=== PATIENT | female | born 1975 | race American Indian/Alaskan Native ===

== ENCOUNTER 2019-01-06 16:07 | Inpatient (IN) | payer BC, MEDICAID ==
[2019-01-06] MEDS ORDERED: ASPIRIN PO ONE (16:26)
[2019-01-06 16:50] LABS: Basophils # (Auto) 0.1 K/mm3 (0.0-0.1); Basophils % (Auto) 0.6 % (0.0-1.8); Eosinophils % (Auto) 0.1 % (0.0-4.3); Hematocrit 37.5 % (30.3-42.9); Hemoglobin 13.4 gm/dl (10.1-14.3); Lymphocytes # (Auto) 0.9 K/mm3 (1.2-5.4); Lymphocytes % (Auto) 8.2 % (13.4-35.0); Mean Corpuscular HGB Conc 36 % (30-34); Mean Corpuscular Volume 88 fl (79-97); Monocytes # (Auto) 0.3 K/mm3 (0.0-0.8); Monocytes % (Auto) 3.1 % (0.0-7.3); Platelet Count 355 K/mm3 (140-440); Red Blood Count 4.29 M/mm3 (3.65-5.03); Red Cell Distribution Width 13.3 % (13.2-15.2)
--- NOTE | 2019-01-06 16:57 | XRay Report ---
CHEST 1 VIEW 01/06/2019 4:43 PM INDICATION / CLINICAL INFORMATION: Chest Pain. COMPARISON: None available. FINDINGS: SUPPORT DEVICES: None. HEART / MEDIASTINUM: No significant abnormality. LUNGS / PLEURA: No significant pulmonary or pleural abnormality. No pneumothorax. ADDITIONAL FINDINGS: No significant additional findings. IMPRESSION: 1. No acute findings. Signer Name: Godfrey Bermudez MD Signed: 01/06/2019 4:52 PM Workstation Name: [id number]
[2019-01-06 17:14] LABS: BUN/Creatinine Ratio 17; Blood Urea Nitrogen 15 mg/dL (7-17); Calcium 9.4 mg/dL (8.4-10.2); Hemolysis Index 9
[2019-01-06] MEDS ORDERED: ZOFRAN IV ONE ×2 (17:50→19:05)
[2019-01-06] MEDS ORDERED: BENTYL IM ONE (17:50)
[2019-01-06] MEDS ORDERED: NACL 0.9% 1000 ML 1,000 ML IV ONE ×2 (17:50→21:30)
[2019-01-06] MEDS ORDERED: LIDOCAINE VISCOUS 2% PO ONE (17:52)
[2019-01-06] MEDS ORDERED: ALUM-MAG HYDROX-SIMETH 200-200-20MG/5ML PO ONE (17:52)
[2019-01-06 18:50] LABS: Alanine Aminotransferase 11 units/L (7-56); Albumin 4.3 g/dL (3.9-5); BUN/Creatinine Ratio 17; Blood Urea Nitrogen 15 mg/dL (7-17); Calcium 9.5 mg/dL (8.4-10.2); Hemolysis Index 10
[2019-01-06 19:02] LABS: Bilirubin,Urine NEG (Negative); Blood,Urine LG (Negative); Color,Urine Yellow (Yellow); Mucus,Urine FEW /HPF; Urobilinogen,Urine < 2.0 mg/dL (<2.0)
[2019-01-06 19:04] LABS: RBC,Urine > 182.0 /HPF (0.0-6.0)
--- NOTE | 2019-01-06 19:15 | Emergency Department Report ---
ED Abdominal Pain HPI - General Chief Complaint: Abdominal Pain Stated Complaint: CHEST PAIN Time Seen by Provider: 01/06/19 17:29 Source: patient Mode of arrival: Ambulatory Limitations: No Limitations - History of Present Illness Initial Comments: Patient is a 43-year-old female who presents the emergency room with complaint of epigastric abdominal pain that began at 5 AM this morning. she has associated nausea and vomiting. She has had approximately 6 episodes of emesis. She states she has had constipation for approximately a week. Denies ever having this before. the patient states also due to the pain she has been "hyperventilating" which was causing tingling in her bilateral fingertips. She is currently on her menstrual cycle. The patient states her only abdominal surgeries are 2 C-sections. Denies any past medical history or allergies to medications. - Related Data Allergies Allergy/AdvReac Type Severity Reaction Status Date / Time No Known Allergies Allergy Unverified 01/06/19 16:09 ED Review of Systems ROS: Stated complaint: CHEST PAIN Other details as noted in HPI Comment: All other systems reviewed and negative ED Past Medical Hx - Past Medical History Previous Medical History?: No - Surgical History Past Surgical History?: No - Social History Smoking Status: Never Smoker Substance Use Type: Alcohol ED Physical Exam - General Limitations: No Limitations General appearance: alert, anxious - Head Head exam: Present: atraumatic, normocephalic - Eye Eye exam: Present: normal appearance, PERRL - ENT ENT exam: Present: mucous membranes moist - Respiratory Respiratory exam: Present: normal lung sounds bilaterally. Absent: respiratory distress, wheezes, rales, rhonchi, stridor, chest wall tenderness, accessory muscle use, decreased breath sounds, prolonged expiratory - Cardiovascular Cardiovascular Exam: Present: regular rate, normal rhythm, normal heart sounds. Absent: systolic murmur, diastolic murmur, rubs, gallop - GI/Abdominal GI/Abdominal exam: Present: soft, tenderness (epigastric, RUQ), normal bowel sounds. Absent: distended, guarding, rebound, rigid - Back Exam Back exam: Absent: CVA tenderness (R), CVA tenderness (L) - Neurological Exam Neurological exam: Present: alert, oriented X3 - Psychiatric Psychiatric exam: Present: normal affect, normal mood - Skin Skin exam: Present: warm, dry, intact ED Course Vital Signs 0701/06/19 01/07/19 16:22 20:13 00:00 Temperature 98.6 F 98 F Pulse Rate 79 86 84 Respiratory 16 18 20 Rate Blood Pressure 139/78 128/78 118/76 [Right] O2 Sat by Pulse 96 100 100 Oximetry 01/07/19 00:13 Temperature Pulse Rate Respiratory 18 Rate Blood Pressure [Right] O2 Sat by Pulse 100 Oximetry - Consultations Consultation #1: 01/07/19 01:[address] Bentley, general surgery regarding pt and results advised to give zosyn, IVF, make NPO, admit to hospitalist, and will see pt in the AM. Consultation #2: 01/07/19 1:[address] Newton, hospitalist regarding pt and results will accept and resume care of pt and admit to the hospital ED Medical Decision Making - Lab Data Result diagrams: 01/06/19 16:28 01/06/19 17:59 - EKG Data EKG shows normal: sinus rhythm, axis, intervals, QRS complexes, ST-T waves Rate: normal - Radiology Data Radiology results: report reviewed ULTRASOUND ABDOMEN, LIMITED (RIGHT UPPER QUADRANT) INDICATION: Cholelithiasis with possible cholecystitis. COMPARISON: CT of the abdomen and pelvis with contrast from earlier today. FINDINGS: Pancreas: No significant abnormality along the visualized portions. The pancreatic tail is obscured. Liver: No significant abnormality. Gallbladder: Numerous gallstones are seen with asymmetric wall thickening measuring up to 17 mm. No pericholecystic fluid is seen. Sonographic Nuñez's sign: Not performed. Bile ducts: No significant abnormality. Common Bile Duct measures 3 mm. Free fluid: None. Additional Findings: None. IMPRESSION: Cholelithiasis with suspected cholecystitis. Please correlate with the clinical findings. Signer Name: Wilver Granados MD Signed: 01/07/2019 12:49 AM Workstation Name: [id number] Transcribed By: SOPHIA Dictated By: Wilver Granados MD Electronically Authenticated By: Wilver Granados MD Signed Date/Time: 01/07/[address] angiography of the chest with 2-D reconstructions INDICATION: Chest pain and elevated d-dimer The patient received 100 mL of Omnipaque 350 for intravenous contrast Thin section axial images were obtained as well as 2-D reformatted MIP images in all 3 planes FINDINGS: There is no hilar or mediastinal adenopathy. No pleural or pericardial effusion. Lung windows show no nodules, masses or infiltrates. There is no thoracic aortic aneurysm or dissection present. Routine axial images as well as 2-D reconstructions through the pulmonary arteries show no evidence of emboli. IMPRESSION: Negative chest CTA CT of the abdomen and pelvis with contrast INDICATION: Chest and abdominal pain FINDINGS: The liver, spleen, pancreas, adrenal glands and kidneys all appear normal. There are gallstones present with gallbladder wall thickening without definite surrounding inflammation. No biliary tree dilation. No fluid or adenopathy in the abdomen. CT of the pelvis shows an umbilical hernia containing fat. Appendix is seen and is normal. No uterine or adnexal masses. No pelvic fluid or adenopathy. No diverticulosis or diverticulitis. No bowel obstruction is seen. No significant skeletal lesion. IMPRESSION: Possible early cholecystitis. Correlation with physical exam and/or gallbladder ultrasound may be of benefit. Automated exposure control was utilized to diminish radiation dose. Signer Name: Arnol Henley MD Signed: 01/06/2019 9:35 PM Workstation Name: [id number] Transcribed By: DAVID Dictated By: Arnol Henley MD Electronically Authenticated By: Arnol Henley MD Signed Date/Time: 01/06/195 CHEST 1 VIEW 01/06/2019 4:43 PM INDICATION / CLINICAL INFORMATION: Chest Pain. COMPARISON: None available. FINDINGS: SUPPORT DEVICES: None. HEART / MEDIASTINUM: No significant abnormality. LUNGS / PLEURA: No significant pulmonary or pleural abnormality. No pneumothorax. ADDITIONAL FINDINGS: No significant additional findings. IMPRESSION: 1. No acute findings. Signer Name: Godfrey Bermudez MD Signed: 01/06/2019 4:52 PM Workstation Name: [id number] Transcribed By: FRANNIE Dictated By: Godfrey Bermudez MD Electronically Authenticated By: Godfrey Bermudez MD Signed Date/Time: 01/06/19 6602 - Medical Decision Making Patient is a 43-year-old female who presents the emergency room with complaint of epigastric abdominal pain that began at 5 AM this morning. she has associated nausea and vomiting. She has had approximately 6 episodes of emesis. She states she has had constipation for approximately a week. Denies ever having this before. the patient states also due to the pain she has been "hyperventilating" which was causing tingling in her bilateral fingertips. She is currently on her menstrual cycle. The patient states her only abdominal surgeries are 2 C-sections. Denies any past medical history or allergies to medications. VSS. on exam: TTP of the epigastric and RUQ. CT abd pelvis shows evidence of cholelithiasis and recommends US, US of the RUQ shows cholelithiasis with evidence of cholecystitis. labs WNL. trop negative x2. D-dimer elevated, CTA of the chest with no acute process, no PE. CXR with no acute process. spoke with Dr. Bentley, general surgery will see pt in the AM. spoke with Dr. Newton, hospitalist who admitted and accepted care of pt. pt admitted to the hospital for further management. - Differential Diagnosis PUD, GERD, gastritis, cholelithiasis, cholecystitis, SBO Critical care attestation.: If time is entered above; I have spent that time in minutes in the direct care of this critically ill patient, excluding procedure time. ED Disposition Clinical Impression: Cholecystitis Abdominal pain Qualifiers: Abdominal location: epigastric Qualified Code(s): R10.13 - Epigastric pain Cholelithiasis Qualifiers: Cholelithiasis location: gallbladder Cholecystitis presence: with cholecystitis Cholecystitis acuity: acute Biliary obstruction: without biliary obstruction Qualified Code(s): K80.00 - Calculus of gallbladder with acute cholecystitis without obstruction Disposition: OP ADMIT IP TO THIS HOSP Is pt being admited?: Yes Does the pt Need Aspirin: No Condition: Fair Time of Disposition: 02:08
[2019-01-06] MEDS ORDERED: MORPHINE IV ONE ×2 (21:09→21:58)
[2019-01-06] MEDS ORDERED: NACL 0.9% 1000 ML 1,000 ML ONE (21:27)
--- NOTE | 2019-01-06 21:39 | Cat Scan Report ---
CT angiography of the chest with 2-D reconstructions INDICATION: Chest pain and elevated d-dimer The patient received 100 mL of Omnipaque 350 for intravenous contrast Thin section axial images were obtained as well as 2-D reformatted MIP images in all 3 planes FINDINGS: There is no hilar or mediastinal adenopathy. No pleural or pericardial effusion. Lung windo ws show no nodules, masses or infiltrates. There is no thoracic aortic aneurysm or dissection present . Routine axial images as well as 2-D reconstructions through the pulmonary arteries show no evidence of emboli. IMPRESSION: Negative chest CTA CT of the abdomen and pelvis with contrast INDICATION: Chest and abdominal pain FINDINGS: The liver, spleen, pancreas, adrenal glands and kidneys all appear normal. There are gallst ones present with gallbladder wall thickening without definite surrounding inflammation. No biliary t ree dilation. No fluid or adenopathy in the abdomen. CT of the pelvis shows an umbilical hernia containing fat. Appendix is seen and is normal. No uterine or adnexal masses. No pelvic fluid or adenopathy. No diverticulosis or diverticulitis. No bowel obst ruction is seen. No significant skeletal lesion. IMPRESSION: Possible early cholecystitis. Correlation with physical exam and/or gallbladder ultrasoun d may be of benefit. Automated exposure control was utilized to diminish radiation dose. Signer Name: Arnol Henley MD Signed: 01/06/2019 9:35 PM Workstation Name: [id number]
--- NOTE | 2019-01-07 00:53 | Ultrasound Report ---
ULTRASOUND ABDOMEN, LIMITED (RIGHT UPPER QUADRANT) INDICATION: Cholelithiasis with possible cholecystitis. COMPARISON: CT of the abdomen and pelvis with contrast from earlier today. FINDINGS: Pancreas: No significant abnormality along the visualized portions. The pancreatic tail is obscured. Liver: No significant abnormality. Gallbladder: Numerous gallstones are seen with asymmetric wall thickening measuring up to 17 mm. No p ericholecystic fluid is seen. Sonographic Nuñez's sign: Not performed. Bile ducts: No significant abnormality. Common Bile Duct measures 3 mm. Free fluid: None. Additional Findings: None. IMPRESSION: Cholelithiasis with suspected cholecystitis. Please correlate with the clinical findings. Signer Name: Wilver Granados MD Signed: 01/07/2019 12:49 AM Workstation Name: [facility]
[2019-01-07] MEDS ORDERED: ZOSYN/NS 4.5GM/100ML 4.5 GM/100 ML VIAL IV ONE (01:34)
[2019-01-07] MEDS ORDERED: REGLAN IV PRN (01:55)
[2019-01-07] MEDS ORDERED: ZOFRAN IV PRN (01:55)
[2019-01-07] MEDS ORDERED: DILAUDID IV PRN ×2 (01:55→12:03)
[2019-01-07] MEDS ORDERED: SODIUM CHLORIDE FLUSH SYRINGE 10 ML IV PRN (01:55)
[2019-01-07] MEDS ORDERED: NACL 0.9% 1000 ML 1,000 ML IV SCH (02:00)
[2019-01-07] MEDS ORDERED: TYLENOL PR PRN (02:01)
--- NOTE | 2019-01-07 02:08 | History and Physical Report ---
History of Present Illness Date of examination: 01/07/19 Date of admission: 01/07/2019 Chief complaint: Abdominal pain, nausea, vomiting History of present illness: 43-year-old -[place] female with no significant past medical history presents to us and see ENT with complaints of epigastric abdominal pain, nausea, and vomiting for the past day. Patient states that at approximately 5 AM yesterday morning she started experiencing epigastric abdominal pain accompanied by nausea and vomiting. She states that she had approximately 6-8 episodes of emesis and began feeling really weak, so she decided to come to the ED around 5 PM in the evening. She also complains of constipation for the past 3-4 days. She denies any further medical history. Denies: taking any OTC or prescription medication, fever, hemoptysis, diarrhea, or recent sick contact Past History Past Medical History: other ( 2; obesity) Past Surgical History: ( 2) Social history: , lives with family, alcohol abuse (drinks 1-2 glasses of wine every other day) Family history: no significant family history Medications and Allergies Allergies Allergy/AdvReac Type Severity Reaction Status Date / Time No Known Allergies Allergy Unverified 01/06/19 16:09 Review of Systems All systems: negative (reviewed in no additional complaints except as noted below) Constitutional: weakness Gastrointestinal: abdominal pain, nausea, vomiting, constipation Menstruation: currently menstrual Exam - Physical Exam Narrative exam: Physical exam General appearance: Present: Mild distress, well-developed, obese - [place] adult female - EENT Eyes: Present: PERRL, EOM intact ENT: hearing intact, normal dentition - Neck Neck: Present: supple, normal ROM - Respiratory Respiratory effort: Non-labored Respiratory: Clear throughout - Cardiovascular Heart rate: 75 (bpm) Rhythm: Sinus rhythm Heart Sounds: Present: S1 & S2. Absent: rub, click - Extremities Extremities: no ischemia, pulses intact, - Peripheral Assessment Peripheral Pulses: within normal limits - Abdominal General gastrointestinal: Obese, soft, tenderness to right upper quadrant and right lower quadrant, normal bowel sounds - Integumentary Integumentary: Present: warm, dry - Musculoskeletal Musculoskeletal: generalized weakness, and removal extremities -Neurological Neurological: CNII-XII intact - Psychiatric Psychiatric: cooperative - Constitutional Vitals: Temp Pulse Resp BP Pulse Ox 98.6 F 79 16 139/78 96 01/06/19 16:22 01/06/19 16:22 01/06/19 16:22 01/06/19 16:22 01/06/19 16:22 Results - Labs CBC & Chem 7: 01/06/19 16:28 01/06/19 17:59 Labs: Laboratory Last Values WBC 10.6 K/mm3 (4.5-11.0) 01/06/19 16:28 RBC 4.29 M/mm3 (3.65-5.03) 01/06/19 16:28 Hgb 13.4 gm/dl (10.1-14.3) 01/06/19 16:28 Hct 37.5 % (30.3-42.9) 01/06/19 16:28 MCV 88 fl (79-97) 01/06/19 16:28 MCH 31 pg (28-32) 01/06/19 16:28 MCHC 36 % (30-34) H 01/06/19 16:28 RDW 13.3 % (13.2-15.2) 01/06/19 16:28 Plt Count 355 K/mm3 (140-440) 01/06/19 16:28 Lymph % (Auto) 8.2 % (13.4-35.0) L 01/06/19 16:28 Stevens % (Auto) 3.1 % (0.0-7.3) 01/06/19 16:28 Eos % (Auto) 0.1 % (0.0-4.3) 01/06/19 16:28 Baso % (Auto) 0.6 % (0.0-1.8) 01/06/19 16:28 Lymph # 0.9 K/mm3 (1.2-5.4) L 01/06/19 16:28 Stevens # 0.3 K/mm3 (0.0-0.8) 01/06/19 16:28 Eos # 0.0 K/mm3 (0.0-0.4) 01/06/19 16:28 Baso # 0.1 K/mm3 (0.0-0.1) 01/06/19 16:28 Seg Neutrophils % 88.0 % (40.0-70.0) H 01/06/19 16:28 Seg Neutrophils # 9.3 K/mm3 (1.8-7.7) H 01/06/19 16:28 407.16 ng/mlDDU (0-234) H 01/06/19 17:59 Sodium 141 mmol/L (137-145) 01/06/19 17:59 Potassium 3.3 mmol/L (3.6-5.0) L 01/06/19 17:59 Chloride 106.9 mmol/L (98-107) 01/06/19 17:59 Carbon Dioxide 16 mmol/L (22-30) L 01/06/19 17:59 21 mmol/L 01/06/19 17:59 BUN 15 mg/dL (7-17) 01/06/19 17:59 0.9 mg/dL (0.7-1.2) 01/06/19 17:59 Estimated GFR > 60 ml/min 01/06/19 17:59 17 % 01/06/19 17:59 Glucose 122 mg/dL (65-100) H 01/06/19 17:59 Calcium 9.5 mg/dL (8.4-10.2) 01/06/19 17:59 0.90 mg/dL (0.1-1.2) 01/06/19 17:59 AST 17 units/L (5-40) 01/06/19 17:59 ALT 11 units/L (7-56) 01/06/19 17:59 57 units/L (35-129) 01/06/19 17:59 < 0.010 ng/mL (0.00-0.029) 01/06/19 22:42 7.9 g/dL (6.3-8.2) 01/06/19 17:59 4.3 g/dL (3.9-5) 01/06/19 17:59 1.2 % 01/06/19 17:59 32 units/L (13-60) 01/06/19 17:59 HCG, Qual Negative (Negative) 01/06/19 17:59 Yellow (Yellow) 01/06/19 18:49 Clear (Clear) 01/06/19 18:49 8.0 (5.0-7.0) H 01/06/19 18:49 Ur Specific [place] 1.020 (1.003-1.030) 01/06/19 18:49 30 mg/dl mg/dL (Negative) 01/06/19 18:49 Neg mg/dL (Negative) 01/06/19 18:49 20 mg/dL (Negative) 01/06/19 18:49 Lg (Negative) 01/06/19 18:49 Neg (Negative) 01/06/19 18:49 Neg (Negative) 01/06/19 18:49 < 2.0 mg/dL (<2.0) 01/06/19 18:49 Ur Leukocyte Esterase Neg (Negative) 01/06/19 18:49 3.0 /HPF (0.0-6.0) 01/06/19 18:49 > 182.0 /HPF (0.0-6.0) 01/06/19 18:49 U Epithel Cells (Auto) 1.0 /HPF (0-13.0) 01/06/19 18:49 Few /HPF 01/06/19 18:49 - Imaging and Cardiology EKG: image reviewed (SR, 75 bpm) Imaging and Cardiology: CT ABD/ Pelvis: FINDINGS: The liver, spleen, pancreas, adrenal glands and kidneys all appear normal. There are gallstones present with gallbladder wall thickening without definite surrounding inflammation. No biliary tree dilation. No fluid or adenopathy in the abdomen. CT of the pelvis shows an umbilical hernia containing fat. Appendix is seen and is normal. No uterine or adnexal masses. No pelvic fluid or adenopathy. No diverticulosis or diverticulitis. No bowel obstruction is seen. No significant skeletal lesion. IMPRESSION: Possible early cholecystitis. Correlation with physical exam and/or gallbladder ultrasound may be of benefit. CT angiogram chest: FINDINGS: There is no hilar or mediastinal adenopathy. No pleural or pericardial effusion. Lung windows show no nodules, masses or infiltrates. There is no thoracic aortic aneurysm or dissection present. Routine axial images as well as 2-D reconstructions through the pulmonary arteries show no evidence of emboli. IMPRESSION: Negative chest CTA Ultrasound ABD: FINDINGS: Pancreas: No significant abnormality along the visualized portions. The pancreatic tail is obscured. Liver: No significant abnormality. Gallbladder: Numerous gallstones are seen with asymmetric wall thickening measuring up to 17 mm. No pericholecystic fluid is seen. Sonographic Nuñez's sign: Not performed. Bile ducts: No significant abnormality. Common Bile Duct measures 3 mm. Free fluid: None. Additional Findings: None. IMPRESSION: Cholelithiasis with suspected cholecystitis. Please correlate with the clinical findings. Assessment and Plan Assessment and plan: 43-year-old -[place] female with no significant past medical history presents to us and see ENT with complaints of epigastric abdominal pain, nausea, and vomiting for the past day. 1. Cholelithiasis with suspected cholecystitis -Seen on Abdominal US -CT Abd/ Pelvis reveals early cholecystitis -Hydrate with IVF -Start Zosyn and Flagyl -General Surgery (Dr. Bentley) following 2. Acute Abdominal Pain -Likely secondary to #1 -Pain management 3. Elevated D-Dimer -D-dimer 407.16 -CT angiogram chest negative for PE 4. Hypokalemia -Potassium on admission 3.3 -Ordered IV potassium 40Meq -Continue to monitor, replete as needed 5. Elevated BP -Slightly hypertensive with blood pressure 139/78 -Likely due to acute abdominal pain -Monitor BP -Hold off on starting antihypertensive medication 6. Obesity -BMI 35.4 kg -Lifestyle and diet changes -Once acute symptoms have resolved, May benefit from outpatient weight mgmt program 7. ETOH Abuse - Drinks 1-2 glasses of wine every or day -Counseled for cessation 8. DVT PPX - On SCD's -On Lovenox Advance Directives: No VTE prophylaxis?: Chemical Plan of care discussed with patient/family: Yes
[2019-01-07] MEDS: KCL 10MEQ/100ML 10 MEQ/100 ML BAG IV SCH ×4 (04:00→07:22)
[2019-01-07] MEDS ORDERED: KCL 10MEQ/100ML 10 MEQ/100 ML BAG IV ONE ×2 (04:40→05:27)
[2019-01-07] MEDS: FLAGYL 500 MG/100 ML 500 MG/100 ML BAG IV SCH ×2 (06:00→15:01)
[2019-01-07] MEDS ORDERED: FLAGYL 500 MG/100 ML 500 MG/100 ML BAG IV ONE (06:33)
[2019-01-07] MEDS ORDERED: LOVENOX SUB-Q SCH (10:00)
[2019-01-07] MEDS ORDERED: ZOSYN/NS 3.375GM/50ML 3.375 GM/50 ML BAG IV SCH (10:00)
[2019-01-07] MEDS ORDERED: SODIUM CHLORIDE FLUSH SYRINGE 10 ML IV SCH (10:00)
[2019-01-07] MEDS: ZOSYN/NS 4.5GM/100ML 4.5 GM/100 ML VIAL IV SCH ×2 (10:22→18:12)
[2019-01-07] MEDS ORDERED: ZEMURON IV ONE (10:57)
[2019-01-07] MEDS ORDERED: DECADRON ONE (10:57)
[2019-01-07] MEDS ORDERED: ROBINUL ONE (10:57)
[2019-01-07] MEDS ORDERED: ZOFRAN ONE (10:57)
[2019-01-07] MEDS ORDERED: BLOXIVERZ ONE (10:57)
[2019-01-07] MEDS ORDERED: XYLOCAINE CARDIAC IV ONE (10:57)
[2019-01-07] MEDS ORDERED: SUBLIMAZE ONE (10:58)
[2019-01-07] MEDS ORDERED: DIPRIVAN 10 MG/ML IV ONE (10:58)
[2019-01-07] MEDS ORDERED: QUELICIN ONE (11:00)
--- NOTE | 2019-01-07 11:31 | Consultation ---
History of Present Illness Consult date: 01/07/19 Reason for consult: abdominal pain Chief complaint: abdominal pain - History of present illness History of present illness: 43 yo F with no PMHx presented to ER with acute onset RUQ and epigastric abdomin al pain that started at 5 am yesterday. It awoke her from sleep. It radiated into her chest. It was sharp. She has never had pain like this before. It was associated with n/v. No f/c. She has a history of chronic constipation. She states her pain, nausea have resolved and she is thirsty. Past History Past Medical History: other ( 2; obesity) Past Surgical History: ( 2) Social history: , lives with family, alcohol abuse (drinks 1-2 glasses of wine every other day) Family history: no significant family history Medications and Allergies Allergies Allergy/AdvReac Type Severity Reaction Status Date / Time No Known Allergies Allergy Unverified 01/06/19 16:09 Home Medications Medication Instructions Recorded Confirmed Last Taken Type No Known Home Medications [No 01/07/19 01/07/19 Unknown History Reported Home Medications] Active Meds: Active Medications Acetaminophen (Tylenol) 650 mg DE Q4H PRN PRN Reason: Pain, Mild (1-3); Fever > 101 Enoxaparin Sodium (Lovenox) 40 mg SUB-Q QDAY [facility] Last Admin: 01/07/19 10:14 Dose: 40 mg Documented by: Hydromorphone HCl (Dilaudid) 0.5 mg IV Q3H PRN PRN Reason: Pain , Severe (7-10) Sodium Chloride (Nacl 0.9% 1000 Ml) 1,000 mls @ 100 mls/hr IV DIRECT LUKAS Last Admin: 01/07/19 10:14 Dose: 100 mls/hr Documented by: Metronidazole (Flagyl 500 Mg/100 Ml) 500 mg in 100 mls @ 100 mls/hr IV Q8HR LUKAS; Protocol Last Admin: 01/07/19 06:00 Dose: 100 mls/hr Documented by: Piperacillin Sod/Tazobactam Sod (Zosyn/Ns 4.5gm/100ml) 4.5 gm in 100 mls @ 200 mls/hr IV Q8H LUKAS; Protocol Last Admin: 01/07/19 10:22 Dose: 200 mls/hr Documented by: Metoclopramide HCl (Reglan) 10 mg IV Q6H PRN PRN Reason: Nausea And Vomiting Ondansetron HCl (Zofran) 4 mg IV Q8H PRN PRN Reason: Nausea And Vomiting Sodium Chloride (Sodium Chloride Flush Syringe 10 Ml) 10 ml IV BID LUKAS Last Admin: 01/07/19 10:14 Dose: 10 ml Documented by: Sodium Chloride (Sodium Chloride Flush Syringe 10 Ml) 10 ml IV PRN PRN PRN Reason: LINE FLUSH Review of Systems All systems: negative (10 pt ROS performed and negative except for that listed in HPI) Exam Vital Signs Temp Pulse Resp BP Pulse Ox 98.6 F 79 16 139/78 96 01/06/19 16:22 01/06/19 16:22 01/06/19 16:22 01/06/19 16:22 01/06/19 16:22 Narrative exam: Gen: AAOx3. tearful but in NAD ENT: no scleral icterus or conjunctival pallor CV; s1, S2+ Resp; even and unlabored Abd: soft, NT, ND Ext: No c/c/e Results - Labs 01/06/19 16:28 01/06/19 17:59 Abnormal lab results 01/06/19 01/06/19 01/06/19 Range/Units 16:28 16:28 17:59 MCHC 36 H (30-34) % Lymph % (Auto) 8.2 L (13.4-35.0) % Lymph # 0.9 L (1.2-5.4) K/mm3 Seg Neutrophils % 88.0 H (40.0-70.0) % Seg Neutrophils # 9.3 H (1.8-7.7) K/mm3 D-Dimer 407.16 H (0-234) ng/mlDDU Potassium 3.3 L (3.6-5.0) mmol/L Carbon Dioxide 18 L (22-30) mmol/L Glucose 154 H (65-100) mg/dL Urine pH (5.0-7.0) 01/06/19 01/06/19 Range/Units 17:59 18:49 MCHC (30-34) % Lymph % (Auto) (13.4-35.0) % Lymph # (1.2-5.4) K/mm3 Seg Neutrophils % (40.0-70.0) % Seg Neutrophils # (1.8-7.7) K/mm3 D-Dimer (0-234) ng/mlDDU Potassium 3.3 L (3.6-5.0) mmol/L Carbon Dioxide 16 L (22-30) mmol/L Glucose 122 H (65-100) mg/dL Urine pH 8.0 H (5.0-7.0) Diabetes panel 01/06/19 01/06/19 Range/Units 16:28 17:59 Sodium 140 141 (137-145) mmol/L Potassium 3.3 L 3.3 L (3.6-5.0) mmol/L Chloride 105.8 106.9 (98-107) mmol/L Carbon Dioxide 18 L 16 L (22-30) mmol/L BUN 15 15 (7-17) mg/dL Creatinine 0.9 0.9 (0.7-1.2) mg/dL Glucose 154 H 122 H (65-100) mg/dL Calcium 9.4 9.5 (8.4-10.2) mg/dL AST 17 (5-40) units/L ALT 11 (7-56) units/L Alkaline Phosphatase 57 (35-129) units/L Total Protein 7.9 (6.3-8.2) g/dL Albumin 4.3 (3.9-5) g/dL Calcium panel 01/06/19 01/06/19 Range/Units 16:28 17:59 Calcium 9.4 9.5 (8.4-10.2) mg/dL Albumin 4.3 (3.9-5) g/dL Pituitary panel 01/06/19 01/06/19 Range/Units 16:28 17:59 Sodium 140 141 (137-145) mmol/L Potassium 3.3 L 3.3 L (3.6-5.0) mmol/L Chloride 105.8 106.9 (98-107) mmol/L Carbon Dioxide 18 L 16 L (22-30) mmol/L BUN 15 15 (7-17) mg/dL Creatinine 0.9 0.9 (0.7-1.2) mg/dL Glucose 154 H 122 H (65-100) mg/dL Calcium 9.4 9.5 (8.4-10.2) mg/dL Adrenal panel 07/19/19 07/19/19 Range/Units 16:28 17:59 Sodium 140 141 (137-145) mmol/L Potassium 3.3 L 3.3 L (3.6-5.0) mmol/L Chloride 105.8 106.9 (98-107) mmol/L Carbon Dioxide 18 L 16 L (22-30) mmol/L BUN 15 15 (7-17) mg/dL Creatinine 0.9 0.9 (0.7-1.2) mg/dL Glucose 154 H 122 H (65-100) mg/dL Calcium 9.4 9.5 (8.4-10.2) mg/dL Total Bilirubin 0.90 (0.1-1.2) mg/dL AST 17 (5-40) units/L ALT 11 (7-56) units/L Alkaline Phosphatase 57 (35-129) units/L Total Protein 7.9 (6.3-8.2) g/dL Albumin 4.3 (3.9-5) g/dL - Imaging CT scan - abdomen: report reviewed, image reviewed CT scan - chest: report reviewed CT scan - pelvis: report reviewed, image reviewed US - abdomen: report reviewed, image reviewed Assessment and Plan 43 yo F with acute cholecystitis Plan: 1. NPO 2. IVF 3. IV abx 4. prn pain and nausea control 5. Recommend cholecystectomy. I discussed all risks, benefits, and alternatives to surgery with the patient and all questions answered. Consent obtained. and son also spoken with at the bedside. 6. Pt to OR today for laparoscopic cholecystectomy 7. replace K Thank you, please call with questions. D/W Dr. Justice
[2019-01-07] MEDS ORDERED: XYLOCAINE 1% 20 mL ONE (11:34)
[2019-01-07] MEDS ORDERED: MARCAINE 0.5% INFILTRATI ONE ×2 (11:34→12:57)
--- NOTE | 2019-01-07 12:04 | Anesthesia Consultation ---
Anesthesia Consult and Med Hx Date of service: 01/07/19 - Airway Anesthetic Teeth Evaluation: Good, Partials ROM Head & Neck: Adequate Mental/Hyoid Distance: Adequate Mallampati Class: Class III Intubation Access Assessment: Possibly Difficult - Pulmonary Exam CTA: Yes - Cardiac Exam Cardiac Exam: RRR - Pre-Operative Health Status ASA Pre-Surgery Classification: ASA1, Emergency Proposed Anesthetic Plan: General - Pulmonary Hx Smoking: No Hx Respiratory Symptoms: No - Cardiovascular System Hx Hypertension: No Hx Heart Attack/AMI: No Hx Percutaneous Transluminal Coronary Angioplasty (PTCA): No - Central Nervous System Hx Seizures: No CVA: No - Gastrointestinal Hx Gastroesophageal Reflux Disease: No - Endocrine Hx Renal Disease: No Hx Liver Disease: No Hx Insulin Dependent Diabetes: No Hx Non-Insulin Dependent Diabetes: No Hx Thyroid Disease: No - Hematic Hx Anemia: No - Other Systems Hx Obesity: Yes - Additional Comments Anesthesia Medical History Comments: No hx anesthetic complications. No N/V today.
--- NOTE | 2019-01-07 12:05 | Anesthesia Day of Surgery ---
Anesthesia Day of Surgery - Day of Surgery Patient Examined: Yes Patient H&P Reviewed: Yes Patient is NPO: Yes
[2019-01-07] MEDS ORDERED: NACL 0.9% 1000 ML 1,000 ML ONE (12:40)
[2019-01-07] MEDS ORDERED: XYLOCAINE 1% 20 mL INFILTRATI ONE (12:57)
[2019-01-07] MEDS ORDERED: TRANSDERM-SCOP TD NR (13:00)
[2019-01-07] MEDS ORDERED: LACTATED RINGERS 1,000 ML IV SCH (13:00)
[2019-01-07] MEDS ORDERED: NORCO 5/325 PO PRN (14:04)
--- NOTE | 2019-01-07 14:05 | Post Operative Note ---
Date of procedure: 01/07/19 Pre-op diagnosis: acute cholecystitis Post-op diagnosis: same Findings: thickened gallbladder filled with large stones, pericholecystic fluid Procedure: laparoscopic cholecystectomy Anesthesia: HUSEYINA, local Surgeon: JANET JACKSON Political Advisor: MARYLOU CANADA Estimated blood loss: minimal Pathology: list (gallbladder) Specimen disposition: to lab Condition: stable Disposition: PACU
--- NOTE | 2019-01-07 15:56 | Post Anesthesia Evaluation ---
- Post Anesthesia Evaluation Patient Participated: Yes Airway Patent: Yes Stable Respiratory Function: Yes Nausea/Vomiting: No Temp > 96.8F: Yes Pain Manageable: Yes Adequeate Hydration: Yes Anesthesia Complications: No
--- NOTE | 2019-01-07 16:26 | Progress Note ---
Assessment and Plan Assessment and plan: Patient is a 43-year-old -[place]ag[place] woman without chronic medical problems who presented to [facility] ED with abdominal pain, nausea, and vomiting for the past day. She underwent lap cholecystectomy * CT ABD/ Pelvis IMPRESSION: Possible early cholecystitis. Correlation with physical exam and/or gallbladder ultrasound may be of benefit. * CT angiogram chest IMPRESSION: Negative chest CTA * Ultrasound ABD IMPRESSION: Cholelithiasis with suspected cholecystitis. Please correlate with the clinical findings. * Date of procedure: 01/07/19, Pre-op diagnosis: acute cholecystitis, Post-op diagnosis: same, Findings: thickened gallbladder filled with large stones, pericholecystic fluid, Procedure: laparoscopic cholecystectomy, Anesthesia: GETA, local, Surgeon: JANET JACKSON, Cafe Helper: MARYLOU CANADA 1. Cholelithiasis with suspected cholecystitis s/p lap kesha -Seen on Abdominal US -CT Abd/ Pelvis reveals early cholecystitis -Hydrate with IVF -Start Zosyn and Flagyl -General Surgery (Dr. Jackson) following 2. Acute Abdominal Pain -Likely secondary to #1 -Pain management 3. Elevated D-Dimer -D-dimer 407.16 -CT angiogram chest negative for PE 4. Hypokalemia -Potassium on admission 3.3 -Ordered IV potassium 40Meq -Continue to monitor, replete as needed 5. Elevated BP -Slightly hypertensive with blood pressure 139/78 -Likely due to acute abdominal pain -Monitor BP -Hold off on starting antihypertensive medication 6. Obesity -BMI 35.4 kg -Lifestyle and diet changes -Once acute symptoms have resolved, May benefit from outpatient weight mgmt program 7. ETOH use - Drinks 1-2 glasses of wine every or day -Counseled for cessation 8. DVT PPX - On SCD's -On Lovenox Advance Directives: No VTE prophylaxis?: Chemical Plan of care discussed with patient/family: Yes prolonged inpatient services 33 minutes History Interval history: Patient was seen and examined. Follow-up on current diagnosis Cholecystitis. No overnight events reported to me. Patient denies any chest pain, shortness breath, nausea/vomiting or severe headaches. Imaging, nursing note, chart, labs and old chart reviewed. Discussed with patient. Hospitalist Physical - Physical exam Narrative exam: Gen: WDWN, NAD, Awake, Alert, Orientated x 3 HEENT: NCAT, EOMI, PERRL, OP Clear Neck: supple, no adenopathy, no thyromegaly, no JVD CVS/Heart: RRR, normal S1S2, pulses present bilaterally Chest/Lungs: CTA B, Symmetrical chest expansion, good air entry bilaterally GI/Abdomen: soft, mild incision tenderness, ND, good bowel sounds, no guarding or rebound /Bladder: no suprapubic tenderness, no CVA or paraspinal tenderness Extermity/Skin: no c/c/e, no obvious rash MSK: FROM x 4 Neuro: CN 2-12 grossly intact, no new focal deficits Psych: calm - Constitutional Vitals: Temp Pulse Resp BP Pulse Ox 98.2 F 66 15 111/60 99 01/07/19 14:45 01/07/19 14:45 01/07/19 14:45 01/07/19 14:45 01/07/19 14:45 Results - Labs CBC & Chem 7: 01/06/19 16:28 01/06/19 17:59 Labs: Laboratory Last Values WBC 10.6 K/mm3 (4.5-11.0) 01/06/19 16:28 RBC 4.29 M/mm3 (3.65-5.03) 01/06/19 16:28 Hgb 13.4 gm/dl (10.1-14.3) 01/06/19 16:28 Hct 37.5 % (30.3-42.9) 01/06/19 16:28 MCV 88 fl (79-97) 01/06/19 16:28 MCH 31 pg (28-32) 01/06/19 16:28 MCHC 36 % (30-34) H 01/06/19 16:28 RDW 13.3 % (13.2-15.2) 01/06/19 16:28 Plt Count 355 K/mm3 (140-440) 01/06/19 16:28 Lymph % (Auto) 8.2 % (13.4-35.0) L 01/06/19 16:28 [place] % (Auto) 3.1 % (0.0-7.3) 01/06/19 16:28 Eos % (Auto) 0.1 % (0.0-4.3) 01/06/19 16:28 Baso % (Auto) 0.6 % (0.0-1.8) 01/06/19 16:28 Lymph # 0.9 K/mm3 (1.2-5.4) L 01/06/19 16:28 [place] # 0.3 K/mm3 (0.0-0.8) 01/06/19 16:28 Eos # 0.0 K/mm3 (0.0-0.4) 01/06/19 16:28 Baso # 0.1 K/mm3 (0.0-0.1) 01/06/19 16:28 Seg Neutrophils % 88.0 % (40.0-70.0) H 01/06/19 16:28 Seg Neutrophils # 9.3 K/mm3 (1.8-7.7) H 01/06/19 16:28 407.16 ng/mlDDU (0-234) H 01/06/19 17:59 Sodium 141 mmol/L (137-145) 01/06/19 17:59 Potassium 3.3 mmol/L (3.6-5.0) L 01/06/19 17:59 Chloride 106.9 mmol/L (98-107) 01/06/19 17:59 Carbon Dioxide 16 mmol/L (22-30) L 01/06/19 17:59 21 mmol/L 01/06/19 17:59 BUN 15 mg/dL (7-17) 01/06/19 17:59 0.9 mg/dL (0.7-1.2) 01/06/19 17:59 Estimated GFR > 60 ml/min 01/06/19 17:59 17 % 01/06/19 17:59 Glucose 122 mg/dL (65-100) H 01/06/19 17:59 Calcium 9.5 mg/dL (8.4-10.2) 01/06/19 17:59 0.90 mg/dL (0.1-1.2) 01/06/19 17:59 AST 17 units/L (5-40) 01/06/19 17:59 ALT 11 units/L (7-56) 01/06/19 17:59 57 units/L (35-129) 01/06/19 17:59 < 0.010 ng/mL (0.00-0.029) 01/06/19 22:42 7.9 g/dL (6.3-8.2) 01/06/19 17:59 4.3 g/dL (3.9-5) 01/06/19 17:59 1.2 % 01/06/19 17:59 32 units/L (13-60) 01/06/19 17:59 HCG, Qual Negative (Negative) 01/06/19 17:59 Yellow (Yellow) 01/06/19 18:49 Clear (Clear) 01/06/19 18:49 8.0 (5.0-7.0) H 01/06/19 18:49 Ur Specific [place] 1.020 (1.003-1.030) 01/06/19 18:49 30 mg/dl mg/dL (Negative) 01/06/19 18:49 Neg mg/dL (Negative) 01/06/19 18:49 20 mg/dL (Negative) 01/06/19 18:49 Lg (Negative) 01/06/19 18:49 Neg (Negative) 01/06/19 18:49 Neg (Negative) 01/06/19 18:49 < 2.0 mg/dL (<2.0) 01/06/19 18:49 Ur Leukocyte Esterase Neg (Negative) 01/06/19 18:49 3.0 /HPF (0.0-6.0) 01/06/19 18:49 > 182.0 /HPF (0.0-6.0) 01/06/19 18:49 U Epithel Cells (Auto) 1.0 /HPF (0-13.0) 01/06/19 18:49 Few /HPF 01/06/19 18:49 Active Medications - Current Medications Current Medications: Generic Name Dose Route Start Last Admin Trade Name Freq PRN Reason Stop Dose Admin Acetaminophen 650 mg 01/07/19 02:01 Tylenol RI Q4H PRN Pain, Mild (1-3); Fever > 101 Acetaminophen/Hydrocodone Bitart 1 each 01/07/19 14:04 [place] 5/325 PO Q4H PRN Pain, Moderate (4-6) Enoxaparin Sodium 40 mg 01/07/19 10:00 01/07/19 10:14 Lovenox SUB-Q 40 mg QDAY LUKAS Administration Hydromorphone HCl 0.5 mg 01/07/19 01:55 01/07/19 15:01 Dilaudid IV 0.5 mg Q3H PRN Administration Pain , Severe (7-10) Hydromorphone HCl 0.5 mg 01/07/19 12:03 Dilaudid IV 01/07/19 18:00 Q10MIN PRN Pain , Severe (7-10) Sodium Chloride 1,000 mls @ 100 mls/hr 01/07/19 02:00 01/07/19 10:14 Nacl 0.9% 1000 Ml IV 100 mls/hr DIRECT LUKAS Administration Metronidazole 500 mg in 100 mls @ 100 mls/hr 01/07/19 06:00 01/07/19 15:01 Flagyl 500 Mg/100 Ml IV 100 mls/hr Q8HR LUKAS Administration Protocol Piperacillin Sod/Tazobactam Sod 4.5 gm in 100 mls @ 200 mls/hr 01/07/19 10:00 01/07/19 10:22 Zosyn/Ns 4.5gm/100ml IV 200 mls/hr Q8H LUKAS Administration Protocol Lactated Ringer's 1,000 mls @ 100 mls/hr 01/07/19 13:00 Lactated Ringers IV DIRECT LUKAS Metoclopramide HCl 10 mg 01/07/19 01:55 Reglan IV Q6H PRN Nausea And Vomiting Ondansetron HCl 4 mg 01/07/19 01:55 Zofran IV Q8H PRN Nausea And Vomiting Scopolamine 1 each 01/07/19 13:00 01/07/19 12:50 Transderm-Scop TD 01/10/19 12:59 1 each PREOP NR Administration Sodium Chloride 10 ml 01/07/19 10:00 01/07/19 10:14 Sodium Chloride Flush Syringe 10 Ml IV 10 ml BID LUKAS Administration Sodium Chloride 10 ml 01/07/19 01:55 Sodium Chloride Flush Syringe 10 Ml IV PRN PRN LINE FLUSH
--- NOTE | 2019-01-07 16:39 | Discharge Summary ---
<BEATADARIOHILLARY R - Last Filed: 01/07/19 16:35> Providers - Providers Date of Admission: 01/07/19 04:06 Date of discharge: 01/07/19 Attending physician: HILLARY COTA 01/07/19 01:55 Consult to Physician [CONS] Routine Comment: Consulting Provider: JANET JACKSON Physician Instructions: Reason For Exam: cholecystitis Primary care physician: RASHMI PALMER Hospitalization Condition: Stable Hospital course: Patient is a 43-year-old -[place]aced[place] woman without chronic medical problems who presented to [facility] ED with abdominal pain, nausea, and vomiting for the past day. She underwent lap cholecystectomy * CT ABD/ Pelvis IMPRESSION: Possible early cholecystitis. Correlation with physical exam and/or gallbladder ultrasound may be of benefit. * CT angiogram chest IMPRESSION: Negative chest CTA * Ultrasound ABD IMPRESSION: Cholelithiasis with suspected cholecystitis. Please correlate with the clinical findings. * Date of procedure: 01/07/19, Pre-op diagnosis: acute cholecystitis, Post-op diagnosis: same, Findings: thickened gallbladder filled with large stones, pericholecystic fluid, Procedure: laparoscopic cholecystectomy, Anesthesia: GETA, local, Surgeon: JANET JACKSON, Furnace Mechanic: MARYLOU CANADA 1. Cholelithiasis with suspected cholecystitis s/p lap kesha -Seen on Abdominal US -CT Abd/ Pelvis reveals early cholecystitis -Hydrate with IVF -Start Zosyn and Flagyl -General Surgery (Dr. Jackson) following 2. Acute Abdominal Pain -Likely secondary to #1 -Pain management 3. Elevated D-Dimer -D-dimer 407.16 -CT angiogram chest negative for PE 4. Hypokalemia -Potassium on admission 3.3 -Ordered IV potassium 40Meq -Continue to monitor, replete as needed 5. Elevated BP -Slightly hypertensive with blood pressure 139/78 -Likely due to acute abdominal pain -Monitor BP -Hold off on starting antihypertensive medication 6. Obesity -BMI 35.4 kg -Lifestyle and diet changes -Once acute symptoms have resolved, May benefit from outpatient weight mgmt program 7. ETOH use - Drinks 1-2 glasses of wine every or day -Counseled for cessation 8. DVT PPX - On SCD's -On Lovenox Advance Directives: No VTE prophylaxis?: Chemical Plan of care discussed with patient/family: Yes prolonged inpatient services 33 minutes ok to discharge if tolerating food and pain is under control Disposition: DC-01 TO HOME OR SELFCARE Time spent for discharge: 32 minutes Core Measure Documentation - Palliative Care Palliative Care/ Comfort Measures: Not Applicable - Core Measures Any of the following diagnoses?: none - VTE Discharge Requirements Deep Vein Thrombosis/Pulmonary Embolism Present on Admission: No Has pt received <5 days of overlap therapy or INR<2.0: No Anticoagulant overlap therapy prescribed at discharge: No Contraindication No Overlap Therapy order at DC: Not Indicated Exam - Physical Exam Narrative exam: Gen: WDWN, NAD, Awake, Alert, Orientated x 3 HEENT: NCAT, EOMI, PERRL, OP Clear Neck: supple, no adenopathy, no thyromegaly, no JVD CVS/Heart: RRR, normal S1S2, pulses present bilaterally Chest/Lungs: CTA B, Symmetrical chest expansion, good air entry bilaterally GI/Abdomen: soft, mild incision tenderness, ND, good bowel sounds, no guarding or rebound /Bladder: no suprapubic tenderness, no CVA or paraspinal tenderness Extermity/Skin: no c/c/e, no obvious rash MSK: FROM x 4 Neuro: CN 2-12 grossly intact, no new focal deficits Psych: calm - Constitutional Vitals: Temp Pulse Resp BP Pulse Ox 98.2 F 66 15 111/60 99 01/07/19 14:45 01/07/19 14:45 01/07/19 14:45 01/07/19 14:45 01/07/19 14:45 Plan Activity: other (no strenous activity unless cleared by Dr. Jackson) Diet: advance as tolerated Follow up with: RASHMI PALMER MD [Primary Care Provider] - 3-5 Days JANET JACKSON DO [Staff Physician] - 7 Days Prescriptions: Ibuprofen [Motrin 800 MG tab] 800 mg PO Q8HR PRN #30 tablet PRN Reason: Pain, Moderate (4-6) HYDROcodone/APAP 5-325 [[place] 5-325 mg TAB] 1 each PO Q4H PRN #30 tablet PRN Reason: Pain , Severe (7-10) <JANET JACKSON - Last Filed: 01/07/19 17:06> Providers - Providers Date of Admission: 01/07/19 04:06 Attending physician: HILLARY COTA 01/07/19 01:55 Consult to Physician [CONS] Routine Comment: Consulting Provider: JANET JACKSON Physician Instructions: Reason For Exam: cholecystitis Primary care physician: RASHMI PALMER Exam - Constitutional Vitals: Temp Pulse Resp BP Pulse Ox 98.2 F 66 15 111/60 99 01/07/19 14:45 01/07/19 14:45 01/07/19 14:45 01/07/19 14:45 01/07/19 14:45 Plan Additional Instructions: SEE PRINTED DISCHARGE INSTRUCTIONS FROM DR. JACKSON'S OFFICE
--- NOTE | 2019-01-07 17:12 | Event Note ---
Date: 01/07/19 Checked on patient post op. She is doing well. Tolerating diet. Has been OOB once to bathroom. No overall complaints. Incisions are c/d/i. D/W Dr. Justice, ok to send patient home tonight if she is tolerating diet and pain controlled. Patient encouraged to get OOB with nursing help to ensure she feels comfortable. Also will give ibuprofen 800mg tab RX along with norco already written by Dr. Justice. Patient given verbal and written dc instructions with follow up in surgery clinic in 2 weeks.
[2019-01-07 18:55] VITALS: BP 107/65
--- NOTE | 2019-01-08 14:09 | Operative Report ---
PREOPERATIVE DIAGNOSIS: Acute cholecystitis. POSTOPERATIVE DIAGNOSIS: Acute cholecystitis. FINDINGS: Thickened gallbladder filled with large stones and pericholecystic fluid. PROCEDURE: Laparoscopic cholecystectomy. ANESTHESIA: General endotracheal anesthesia, local. SURGEON: Prema Bentley DO AVIONICS INSTALLER: Reji Jackson MD. ESTIMATED BLOOD LOSS: Minimal. PATHOLOGY: Gallbladder specimen. DISPOSITION: To lab. CONDITION AND DISPOSITION: The patient is stable to PACU. HISTORY OF PRESENT ILLNESS AND INDICATION: The patient is a 43-year-old female who presented to the Emergency Room with complaints of abdominal pain, nausea and vomiting. The abdominal pain was located in the right upper quadrant, was sharp and sudden onset. Upon workup, the patient was found to have normal LFTs and an ultrasound of her abdomen showed acute cholecystitis. Cholecystectomy was recommended. All risks, benefits and alternatives to surgery were discussed with the patient. Consent obtained. All questions were answered. PROCEDURE IN DETAIL: The patient was identified in the preoperative area, taken back to the operating room and placed on the operating table in supine position. After anesthesia was induced, the abdomen was prepped and draped in the usual sterile fashion. Timeout was performed. A local anesthetic was infiltrated into all skin incision sites. A 5 mm incision was made above the umbilicus through which a Veress needle was inserted. The Veress needle position was confirmed using saline drop test and the abdomen insufflated to 15 mmHg. Once the abdomen was insufflated, the Veress needle was removed and a 5 mm Optiview trocar was placed through this incision. The abdomen was inspected. There was no underlying injury to any of the abdominal contents. The patient was placed in reverse Trendelenburg and tilted to the left. The gallbladder was visualized in the right upper quadrant. An additional 12 mm subxiphoid and two right-sided 5 mm abdominal trocars were placed under direct visualization. The gallbladder could not be grasped because it was distended and filled with bile. Therefore, the gallbladder was decompressed of approximately 30 mL of dark green bile. The gallbladder was then grasped at the fundus and retracted cephalad and above the liver. The gallbladder infundibulum was identified and was obscured by fat. The fat was carefully dissected off of the infundibulum until the cystic duct and artery could be dissected. The cystic duct and artery were then carefully skeletonized using a [place] dissector. The lateral and medial peritoneal reflection of the gallbladder was also dissected until the critical view was obtained. The cystic duct and artery were seen as the only two structures entering the gallbladder. Three clips were placed on the proximal aspect of the cystic duct and 1 distally and 2 on the cystic artery proximally and 1 distally. An additional clip was placed on some thickened fatty tissue as well. The cystic duct and artery were then transected between the clips using EndoShears. The gallbladder was then dissected off the liver bed using hook electrocautery. The gallbladder was then placed into an EndoCatch bag and removed via the 12 mm port. The 12 mm port and skin and fascial incision did have to be extended to facilitate removal of the gallbladder secondary to very large stones. The abdomen was then again inspected and the Tripp's pouch and gallbladder fossa were irrigated. The clips were visualized and intact. There was no bleeding or bile leakage identified. Hemostasis of the liver bed was controlled using electrocautery. The irrigant did return clear. The patient was then placed into neutral position and the 12 mm port fascia was closed with interrupted 0 Vicryl sutures using the Freeman-Viktoria device. The remaining ports were then removed under direct visualization and the abdomen desufflated. The anterior fascia of the 12 mm incision was closed using a running 0 Vicryl stitch. The skin incision was once again infiltrated with local anesthetic and closed with 4-0 Monocryl subcuticular stitches and skin glue. At the end of the case, all sponge, instrument, sharp counts were correct x 2. The patient was awoken from anesthesia, extubated and taken to PACU in stable condition. JOB# [id number] ALANA/MYNOR
== END 2019-01-07 19:33 | disposition home or self-care (01) | DRG 419 ==
LOC: ED 16:07 → 3A 01-07 04:06
PROVIDERS: ADMIT Internal Medicine; ATTEND Internal Medicine
PROC: 0FT44ZZ Resection of Gallbladder, Percutaneous Endoscopic Approach (ICD-10-PCS; principal; 2019-01-07)
DX: K80.00 Calculus of gallbladder with acute cholecystitis without obstruction (principal); E87.6 Hypokalemia; E66.9 Obesity, unspecified; F10.10 Alcohol abuse, uncomplicated; Z68.35 Body mass index [BMI] 35.0-35.9, adult; Z71.41 Alcohol abuse counseling and surveillance of alcoholic
CPT/HCPCS: 36415; 71045; 71275; 74177; 76705; 80048; 80053; 81001; 83690; 84484; 84703; 85025; 85379; 88304; 93005; 93010; 96365; 96375; G0378; J0330; J0500; J1100; J1170; J1650; J2001; J2270; J2405; J2543; J2704; J2710; J3010; J3480; J7030; Q9967

== ENCOUNTER 2021-03-22 22:45 | Emergency (ER) | payer BC, MEDICAID ==
--- NOTE | 2021-03-23 00:32 | Emergency Department Report ---
ED Palpitations HPI - General Chief Complaint: Arrhythmia/Palpitations Stated Complaint: ELEVATED RESTING HR Time Seen by Provider: 03/23/21 00:11 Source: patient Mode of arrival: Ambulatory Limitations: No Limitations - History of Present Illness Initial Comments: 45-year-old F [place] female with no significant past medical history was involved with orthopedic spine surgery for correction of some toe issues with and during her medical clearance was found to have a tachycardia was advised to have it evaluated. She reports while in [facility] today she did not check on her blood pressure was found to have a heart rate of 130 with mild palpitation p alpitation episodes with no associated presyncope, chest pain, shortness of breath. She reports no new medications associated clinical anxious and her surgical procedure and also worried due to her sister having a few months ago. She reports no illicit drug use, no nausea, no vomiting, no fever, chills and sweats. MD Complaint: palpitations - Related Data Previous Rx's Medication Instructions Recorded Last Taken Type HYDROcodone/APAP 5-325 [[place] 1 each PO Q4H PRN #30 tablet 01/07/19 Unknown Rx 5-325 mg TAB] Ibuprofen [Motrin 800 MG tab] 800 mg PO Q8HR PRN #30 tablet 01/07/19 Unknown Rx Allergies Allergy/AdvReac Type Severity Reaction Status Date / Time No Known Allergies Allergy Unverified 01/06/19 16:09 ED Review of Systems ROS: Stated complaint: ELEVATED RESTING HR Other details as noted in HPI Comment: All other systems reviewed and negative ED Past Medical Hx - Past Medical History Previous Medical History?: No Hx Hypertension: No Hx Heart Attack/AMI: No Hx Liver Disease: No Hx Renal Disease: No Hx Seizures: No - Surgical History Past Surgical History?: Yes Hx Cholecystectomy: Yes Additional Surgical History: C- sections X 2. - Social History Smoking Status: Never Smoker - Medications Home Medications: Home Medications Medication Instructions Recorded Confirmed Last Taken Type HYDROcodone/APAP 5-325 [[place] 1 each PO Q4H PRN #30 tablet 01/07/19 Unknown Rx 5-325 mg TAB] Ibuprofen [Motrin 800 MG tab] 800 mg PO Q8HR PRN #30 tablet 01/07/19 Unknown Rx ED Physical Exam - General Limitations: No Limitations General appearance: alert, in no apparent distress - Head Head exam: Present: atraumatic, normocephalic - Eye Eye exam: Present: normal appearance, PERRL, EOMI Pupils: Present: normal accommodation - ENT ENT exam: Present: normal exam, normal orophraynx, mucous membranes moist - Neck Neck exam: Present: normal inspection, full ROM - Respiratory Respiratory exam: Present: normal lung sounds bilaterally. Absent: respiratory distress - Cardiovascular Cardiovascular Exam: Present: regular rate, normal rhythm. Absent: systolic murmur, diastolic murmur, rubs, gallop - GI/Abdominal GI/Abdominal exam: Present: soft, normal bowel sounds - Extremities Exam Extremities exam: Present: normal inspection, normal capillary refill - Back Exam Back exam: Present: normal inspection. Absent: CVA tenderness (R), CVA tendern ess (L) - Neurological Exam Neurological exam: Present: alert, oriented X3, CN II-XII intact, normal gait - Psychiatric Psychiatric exam: Present: normal affect, normal mood - Skin Skin exam: Present: warm, dry, intact, normal color. Absent: rash ED Medical Decision Making - Lab Data Result diagrams: 03/23/21 00:48 03/23/21 00:48 Lab Results 03/23/21 03/23/21 Range/Units 00:48 00:48 WBC 6.1 (4.5-11.0) K/mm3 RBC 4.23 (3.65-5.03) M/mm3 Hgb 13.3 (10.1-14.3) gm/dl Hct 38.2 (30.3-42.9) % MCV 90 (79-97) fl MCH 32 (28-32) pg MCHC 35 H (30-34) % RDW 13.3 (13.2-15.2) % Plt Count 296 (140-440) K/mm3 [place] % (Auto) Sm[employer] Pipe Repairer Sodium 137 (137-145) mmol/L Potassium 4.2 (3.6-5.0) mmol/L Chloride 103.4 (98-107) mmol/L Carbon Dioxide 22 (22-30) mmol/L Anion Gap 16 mmol/L BUN 11 (7-17) mg/dL Creatinine 0.8 (0.6-1.2) mg/dL Estimated GFR > 60 ml/min BUN/Creatinine Ratio 14 % Glucose 130 H (65-100) mg/dL Calcium 9.5 (8.4-10.2) mg/dL - EKG Data EKG shows normal: sinus rhythm Rate: tachycardia - EKG Data When compared to previous EKG there are: no significant change Interpretation: no acute changes - Medical Decision Making 45-year-old -[place] female with my department complaining of tachycardia of an unknown etiology. Potential causes include but are not limited to infection, hypothyroidism, pulmonary embolism, pericarditis, dehydration, anemia, pheochromocytoma, drug and alcohol withdrawal or intoxication. Spine examination findings there is a cardiac cause remains unclear no concerns for emergent diagnosis. Critical care attestation.: If time is entered above; I have spent that time in minutes in the direct care of this critically ill patient, excluding procedure time. ED Disposition Clinical Impression: Palpitations Disposition: 01 HOME / SELF CARE / HOMELESS Is pt being admited?: No Does the pt Need Aspirin: No Condition: Stable Instructions: Palpitations, [id number], Ambulatory Cardiac Monitoring Referrals: BRUNA JUDGE MD [Staff Physician] - 3-5 Days
[2021-03-23 01:25] LABS: Hematocrit 38.2 % (30.3-42.9); Hemoglobin 13.3 gm/dl (10.1-14.3); Mean Corpuscular HGB Conc 35 % (30-34); Mean Corpuscular Volume 90 fl (79-97); Platelet Count 296 K/mm3 (140-440); Red Blood Count 4.23 M/mm3 (3.65-5.03); Red Cell Distribution Width 13.3 % (13.2-15.2)
[2021-03-23 01:27] LABS: BUN/Creatinine Ratio 14; Blood Urea Nitrogen 11 mg/dL (7-17); Calcium 9.5 mg/dL (8.4-10.2); Hemolysis Index 5
[2021-03-23 03:27] LABS: Anisocytosis 1+; Platelet Estimate Consistent w Auto; Total Cells Counted 100
[2021-03-23] MEDS ORDERED: LORazepam 1 MG TAB PO ONE (03:43)
[2021-03-23 04:09] VITALS: BP 146/82
--- NOTE | 2021-03-25 11:12 | Electrocardiograph Report ---
[facility] Test Date: 2021-03-23 Test Time: 00:33:22 Pat Name: JEREMY NAM Department: Room: Gender: F Tree Care Foreman: LILIYA : 1975 Requested By: FAUSTO VELÁZQUEZ Order Number: [id number] Reading MD: Nando Kinsey Measurements Intervals [place] Rate: 121 P: 0 DC: 158 QRS: 61 QRSD: 83 T: 21 QT: 324 QTc: 460 Interpretive Statements Sinus tachycardia Probable left atrial enlargement No previous ECG available for comparison Electronically Signed On 03-25-2021 11:12:41 EDT by Nando Kinsey
== END 2021-03-23 04:31 | disposition home or self-care (01) ==
LOC: ED 22:45
DX: R00.2 Palpitations (principal); Z90.49 Acquired absence of other specified parts of digestive tract
CPT/HCPCS: 36415; 80048; 85007; 85025; 93005; 99283